=== PATIENT | male | born 1935 | race African-American/Black ===

== ENCOUNTER 2018-09-13 11:22 | Inpatient (IN) | payer MEDICARE, OTHER ==
[2018-09-13] VITALS (31 sets, daily range): BP systolic 77–139; BP diastolic 39–101
[~2018-09-13] VITALS: Ht 182.9 cm; Wt 85.0 kg
[2018-09-13 12:52] LABS: HEMATOCRIT. 31.1 % (42.0-52.0); HEMOGLOBIN. 9.5 g/dL (14.0-18.0); MEAN CORPUSCULAR HEMOGLOBIN 29.8 pg (28.0-32.0); MEAN CORPUSCULAR VOLUME 97.9 fL (80.0-94.0); MEAN PLATELET VOLUME 9.1 fl (7.4-10.4); PLATELET 186 x1000/uL (130-400); RED BLOOD CELL COUNT 3.17 mill/uL (4.7-6.1)
[2018-09-13 13:00] LABS: CHLORIDE 102 mEq/L (98-107); INR 1.1; PROTHROMBIN TIME 10.7 sec (9.1-11.1)
[2018-09-13] MEDS ORDERED: SODIUM CHLORIDE 0.9% 250 ML IV ONE (13:11)
[2018-09-13 13:13] LABS: NUCLEATED RED BLOOD CELLS 1 /100 WBC; PLATELET ESTIMATE NORMAL
[2018-09-13] MEDS ORDERED: SODIUM CHLORIDE 0.9% 1,000 ML IV ONE (13:58)
[2018-09-13] MEDS ORDERED: NOREPINEPHRINE 4 MG in DEXT 5% WATER 246 ML IV ONE (14:00)
[2018-09-13] MEDS ORDERED: VANCOMYCIN 1 G PREMIX 200 ML IV ONE (14:00)
[2018-09-13] MEDS ORDERED: PIPERACILLIN/TAZ 3.375G PREMIX 50 ML IV ONE (14:00)
[2018-09-13] MEDS ORDERED: NOREPINEPHRINE 4MG/250ML PMX 250 ML IV NR ×2 (14:30)
[2018-09-13 14:36] LABS: BG BILEVEL POS AIRWAY PRESSURE 15/5; BG CARBOXYHEMOGLOBIN 0.6 % (0.5-1.5); BG DEOXYHEMOGLOBIN 0.1 % (0.0-5.0); BG FRACTION INSPIRED OXYGEN 100; BG HCO3 ACT 22.1 mmol/L (22.0-26.0); BG METHEMOGLOBIN 0.4 % (0.0-1.5); BG OXYGEN SATURATION 99.9 % (92.0-98.5); BG OXYHEMOGLOBIN 98.9 % (94.0-97.0); BG PCO2 64.9 mmHg (35.0-45.0); BG PO2 458.9 mmHg (75.0-100.0); BG SAMPLE SITE LEFT RADIAL; BG TOTAL HEMOGLOBIN 9.5 g/dL (12.0-18.0); BG VENT MODE MASK - BIPAP
[2018-09-13] MEDS ORDERED: PROPOFOL 10MG/ML 100ML 100 ML IV ONE (15:15)
[2018-09-13] MEDS ORDERED: ETOMIDATE 2MG/ML 10ML VIAL IV ONE (15:15)
[2018-09-13] MEDS ORDERED: LORAZEPAM 2MG/ML CPJ IV ONE (15:15)
[2018-09-13] MEDS ORDERED: VECURONIUM BROMIDE 10 MG/VIAL IV ONE (15:15)
[2018-09-13] MEDS ORDERED: DIPHENHYDRAMINE 50MG/ML VIAL IV PRN (16:15)
[2018-09-13] MEDS ORDERED: NA PHOS,M-B/NA PHOS,DI-BA ENEMA 118ML PR PRN (16:15)
[2018-09-13] MEDS ORDERED: PROPOFOL 10MG/ML 100ML 100 ML IV PRN (16:15)
[2018-09-13] MEDS ORDERED: GUAIFENESIN 200MG/10ML SUGAR FREE UDC PO PRN (16:15)
[2018-09-13] MEDS ORDERED: IPRATROPIUM/ALBUTEROL 0.5-3(2.5)MG/3ML NEB INH PRN (16:15)
[2018-09-13] MEDS ORDERED: ACETAMINOPHEN 325MG TABLET PO PRN (16:15)
[2018-09-13] MEDS ORDERED: HYDROCODONE/ACETAMINOPHEN 5/325MG TABLET PO PRN (16:15)
[2018-09-13] MEDS ORDERED: ACETAMINOPHEN 650MG SUPP PR PRN (16:15)
[2018-09-13] MEDS ORDERED: LORAZEPAM 0.5MG TABLET PO PRN (16:15)
[2018-09-13] MEDS ORDERED: MAGNESIUM/ALUMINUM HYDROXIDE/SIMETHICONE 30ML UDC PO PRN (16:15)
[2018-09-13 16:19] LABS: BG BASE EXCESS -6.9 mmol/L (-2.0-2.0); BG CARBOXYHEMOGLOBIN 0.4 % (0.5-1.5); BG DEOXYHEMOGLOBIN 0.6 % (0.0-5.0); BG FRACTION INSPIRED OXYGEN 50; BG HCO3 ACT 17.5 mmol/L (22.0-26.0); BG METHEMOGLOBIN 0.1 % (0.0-1.5); BG OXYGEN SATURATION 99.4 % (92.0-98.5); BG OXYHEMOGLOBIN 98.9 % (94.0-97.0); BG PCO2 30.9 mmHg (35.0-45.0); BG PO2 220.9 mmHg (75.0-100.0); BG SAMPLE SITE LEFT RADIAL; BG TIDAL VOLUME(mL) 550 mL; BG TOTAL HEMOGLOBIN 9.3 g/dL (12.0-18.0); BG VENT MODE VENT - A/C; BG VENT RATE 20 set
[2018-09-13] MEDS ORDERED: NOREPINEPHRINE 8 MG in DEXT 5% WATER 242 ML IV PRN (17:00)
[2018-09-13 17:23] LABS: CLARITY URINE TURBID (CLEAR); KETONES URINE 2+ (NEGATIVE); LEUKOCYTE ESTERASE URINE 3+ (NEGATIVE); NITRITE URINE POSITIVE (NEGATIVE); OCCULT BLOOD URINE 3+ (NEGATIVE); PROTEIN URINE 4+ (NEGATIVE); SPECIFIC GRAVITY URINE 1.018 (1.005-1.030); UROBILINOGEN URINE >=8.0 E.U./dL (0.2-1.0)
[2018-09-13 17:45] LABS: *BARBITURATES SCREEN URINE NEGATIVE (NEGATIVE); *BENZODIAZEPINES SCREEN URINE NEGATIVE (NEGATIVE); *COCAINE SCREEN URINE NEGATIVE (NEGATIVE)
[2018-09-13 17:46] LABS: *AMPHETAMINES SCREEN URINE NEGATIVE (NEGATIVE); CANNABINOID URINE SCREEN NEGATIVE (NEGATIVE); METHADONE URINE SCREEN NEGATIVE (NEGATIVE); OPIATES URINE SCREEN NEGATIVE (NEGATIVE); PHENCYCLIDINE URINE SCREEN NEGATIVE (NEGATIVE)
[2018-09-13 17:51] LABS: COLOR URINE YELLOW (YELLOW)
[2018-09-13 19:13] LABS: BG BASE EXCESS -7.3 mmol/L (-2.0-2.0); BG CARBOXYHEMOGLOBIN 0.2 % (0.5-1.5); BG DEOXYHEMOGLOBIN 0.9 % (0.0-5.0); BG FRACTION INSPIRED OXYGEN 45; BG METHEMOGLOBIN 0.1 % (0.0-1.5); BG OXYGEN SATURATION 99.1 % (92.0-98.5); BG OXYHEMOGLOBIN 98.8 % (94.0-97.0); BG PCO2 41.5 mmHg (35.0-45.0); BG PH 7.278 (7.350-7.450); BG PO2 186.5 mmHg (75.0-100.0); BG SAMPLE SITE LEFT RADIAL; BG TIDAL VOLUME(mL) 450 mL; BG TOTAL HEMOGLOBIN 9.4 g/dL (12.0-18.0); BG VENT MODE VENT - A/C; BG VENT RATE 18 set
[2018-09-13] MEDS: IPRATROPIUM/ALBUTEROL 0.5-3(2.5)MG/3ML NEB INH SCH (20:26)
[2018-09-13] MEDS: HEPARIN 5000 UNITS/ML VIAL SUBCUT SCH (21:00)
[2018-09-13] MEDS ORDERED: PIPERACILLIN/TAZ 2.25G PREMIX 50 ML IV SCH ×2 (22:00)
[2018-09-13] MEDS: PIPERACILLIN/TAZ 2.25G PREMIX 50 ML IV SCH (22:10)
[2018-09-13] MEDS: NOREPINEPHRINE 8 MG in DEXT 5% WATER 242 ML IV PRN (22:36)
[2018-09-14] VITALS (99 sets, daily range): BP systolic 62–137; BP diastolic 30–74
[2018-09-14] MEDS: IPRATROPIUM/ALBUTEROL 0.5-3(2.5)MG/3ML NEB INH SCH ×7 (00:23→23:58)
[2018-09-14 05:38] LABS: HEMATOCRIT. 27.6 % (42.0-52.0); HEMOGLOBIN. 8.9 g/dL (14.0-18.0); MEAN CORPUSCULAR HEMOGLOBIN 30.5 pg (28.0-32.0); MEAN CORPUSCULAR VOLUME 94.8 fL (80.0-94.0); MEAN PLATELET VOLUME 9.4 fl (7.4-10.4); PLATELET 174 x1000/uL (130-400); RED BLOOD CELL COUNT 2.91 mill/uL (4.7-6.1); RED CELL DISTRIBUTION WIDTH 15.6 % (11.6-14.6)
[2018-09-14] MEDS: PIPERACILLIN/TAZ 2.25G PREMIX 50 ML IV SCH ×2 (05:41→14:38)
[2018-09-14 06:11] LABS: CHLORIDE 102 mEq/L (98-107)
[2018-09-14 06:23] LABS: CREATINE KINASE 184 IU/L (39-308); CREATINE KINASE MB FRACTION 6.7 ng/mL (0.5-3.6)
[2018-09-14 06:24] LABS: HDL CHOLESTEROL 47 mg/dL (40-59); T4 FREE 0.57 ng/dL (0.76-1.46)
[2018-09-14 06:34] LABS: LDL CHOLESTEROL 33 mg/dL (5-100)
[2018-09-14 07:44] LABS: PLATELET ESTIMATE NORMAL
[2018-09-14] MEDS: HEPARIN 5000 UNITS/ML VIAL SUBCUT SCH (08:09)
[2018-09-14] MEDS: ASPIRIN 81MG EC TABLET PO SCH (08:09)
[2018-09-14] MEDS: PANTOPRAZOLE SODIUM 40 MG/VIAL IV SCH (08:44)
[2018-09-14 08:55] LABS: BG BASE EXCESS -7.3 mmol/L (-2.0-2.0); BG CARBOXYHEMOGLOBIN 0.4 % (0.5-1.5); BG DEOXYHEMOGLOBIN 0.7 % (0.0-5.0); BG FRACTION INSPIRED OXYGEN 45; BG HCO3 ACT 18.9 mmol/L (22.0-26.0); BG METHEMOGLOBIN 0.3 % (0.0-1.5); BG OXYGEN SATURATION 99.3 % (92.0-98.5); BG OXYHEMOGLOBIN 98.6 % (94.0-97.0); BG PCO2 41.2 mmHg (35.0-45.0); BG PO2 196.3 mmHg (75.0-100.0); BG SAMPLE SITE RIGHT BRACHIAL; BG TIDAL VOLUME(mL) 450 mL; BG TOTAL HEMOGLOBIN 9.4 g/dL (12.0-18.0); BG VENT MODE VENT - A/C; BG VENT RATE 18 set
[2018-09-14] MEDS ORDERED: ASPIRIN 81MG TABLET PO SCH (09:00)
[2018-09-14] MEDS: NOREPINEPHRINE 8 MG in DEXT 5% WATER 242 ML IV PRN ×2 (11:28→20:25)
[2018-09-14] MEDS: LEVOTHYROXINE SODIUM 50MCG TABLET PO SCH (12:16)
[2018-09-14] MEDS ORDERED: LORAZEPAM 0.5MG TABLET PO PRN (12:41)
[2018-09-14] MEDS ORDERED: VANCOMYCIN 1250MG in DEXTROSE 5% WATER 250ML IV NR (14:45)
[2018-09-14] MEDS ORDERED: PROPOFOL 10MG/ML 100ML 100 ML IV PRN (17:45)
[2018-09-14] MEDS ORDERED: HEPARIN SODIUM 1,000 UNIT/1ML VIAL IV ONE (22:15)
[2018-09-15] VITALS (96 sets, daily range): BP systolic 79–132; BP diastolic 38–77
[2018-09-15] MEDS: PIPERACILLIN/TAZ 2.25G PREMIX 50 ML IV SCH ×4 (00:18→21:36)
[2018-09-15] MEDS: IPRATROPIUM/ALBUTEROL 0.5-3(2.5)MG/3ML NEB INH SCH ×5 (03:54→20:27)
[2018-09-15 05:48] LABS: HEMATOCRIT. 27.6 % (42.0-52.0); HEMOGLOBIN. 8.7 g/dL (14.0-18.0); MEAN CORPUSCULAR HEMOGLOBIN 29.8 pg (28.0-32.0); MEAN CORPUSCULAR VOLUME 94.4 fL (80.0-94.0); MEAN PLATELET VOLUME 9.5 fl (7.4-10.4); PLATELET 133 x1000/uL (130-400); RED BLOOD CELL COUNT 2.93 mill/uL (4.7-6.1); RED CELL DISTRIBUTION WIDTH 16.1 % (11.6-14.6)
[2018-09-15] MEDS: LEVOTHYROXINE SODIUM 50MCG TABLET PO SCH (05:49)
[2018-09-15] MEDS: NOREPINEPHRINE 8 MG in DEXT 5% WATER 242 ML IV PRN (05:50)
[2018-09-15 08:33] LABS: PLATELET ESTIMATE NORMAL
[2018-09-15] MEDS: ASPIRIN 81MG EC TABLET PO SCH (08:48)
[2018-09-15] MEDS: PANTOPRAZOLE SODIUM 40 MG/VIAL IV SCH (09:00)
[2018-09-15 09:20] LABS: BG BASE EXCESS -5.8 mmol/L (-2.0-2.0); BG CARBOXYHEMOGLOBIN 0.8 % (0.5-1.5); BG FRACTION INSPIRED OXYGEN 30; BG METHEMOGLOBIN 0.1 % (0.0-1.5); BG OXYHEMOGLOBIN 97.1 % (94.0-97.0); BG PCO2 34.8 mmHg (35.0-45.0); BG PH 7.356 (7.350-7.450); BG PO2 117.1 mmHg (75.0-100.0); BG SAMPLE SITE RIGHT BRACHIAL; BG TIDAL VOLUME(mL) 450 mL; BG TOTAL HEMOGLOBIN 8.9 g/dL (12.0-18.0); BG VENT MODE VENT - A/C; BG VENT RATE 18 set
[2018-09-15] MEDS ORDERED: LIDOCAINE HCL 1% 20ML VIAL (Pyxis) INJ ONE (09:36)
[2018-09-15 13:33] LABS: BG BASE EXCESS -4.5 mmol/L (-2.0-2.0); BG CARBOXYHEMOGLOBIN 0.4 % (0.5-1.5); BG DEOXYHEMOGLOBIN 3.8 % (0.0-5.0); BG FRACTION INSPIRED OXYGEN 30; BG HCO3 ACT 20.4 mmol/L (22.0-26.0); BG METHEMOGLOBIN 0.1 % (0.0-1.5); BG OXYGEN SATURATION 96.2 % (92.0-98.5); BG OXYHEMOGLOBIN 95.7 % (94.0-97.0); BG PCO2 36.8 mmHg (35.0-45.0); BG PH 7.362 (7.350-7.450); BG PO2 93.2 mmHg (75.0-100.0); BG PRESSURE SUPPORT 10; BG SAMPLE SITE RIGHT BRACHIAL; BG TOTAL HEMOGLOBIN 8.9 g/dL (12.0-18.0); BG VENT MODE VENT - CPAP
[2018-09-15 16:44] LABS: BG BASE EXCESS -2.9 mmol/L (-2.0-2.0); BG CARBOXYHEMOGLOBIN 0.4 % (0.5-1.5); BG DEOXYHEMOGLOBIN 1.6 % (0.0-5.0); BG FRACTION INSPIRED OXYGEN 35; BG HCO3 ACT 22.4 mmol/L (22.0-26.0); BG METHEMOGLOBIN 0.2 % (0.0-1.5); BG OXYGEN SATURATION 98.4 % (92.0-98.5); BG OXYHEMOGLOBIN 97.8 % (94.0-97.0); BG PCO2 41.5 mmHg (35.0-45.0); BG PH 7.351 (7.350-7.450); BG PO2 137.6 mmHg (75.0-100.0); BG SAMPLE SITE RIGHT BRACHIAL; BG TOTAL HEMOGLOBIN 9.4 g/dL (12.0-18.0); BG VENT MODE MASK - AEROSOL
[2018-09-16] VITALS (58 sets, daily range): BP systolic 91–135; BP diastolic 27–94
[2018-09-16] MEDS: IPRATROPIUM/ALBUTEROL 0.5-3(2.5)MG/3ML NEB INH SCH ×6 (01:14→20:25)
[2018-09-16] MEDS: NOREPINEPHRINE 8 MG in DEXT 5% WATER 242 ML IV PRN (01:34)
[2018-09-16 05:51] LABS: BASOPHILS % 0.4 % (0.0-2.0); EOSINOPHILS % 0.7 % (0.0-5.0); HEMATOCRIT. 27.9 % (42.0-52.0); HEMOGLOBIN. 8.8 g/dL (14.0-18.0); LYMPHOCYTES % 13.9 % (20.0-50.0); MEAN CORPUSCULAR HEMOGLOBIN 30.1 pg (28.0-32.0); MEAN CORPUSCULAR VOLUME 95.5 fL (80.0-94.0); MEAN PLATELET VOLUME 9.5 fl (7.4-10.4); MONOCYTES % 8.2 % (2.0-8.0); NEUTROPHILS % 76.8 % (40.0-76.0); PLATELET 149 x1000/uL (130-400); RED BLOOD CELL COUNT 2.93 mill/uL (4.7-6.1)
[2018-09-16] MEDS: LEVOTHYROXINE SODIUM 50MCG TABLET PO SCH (06:12)
[2018-09-16] MEDS: PIPERACILLIN/TAZ 2.25G PREMIX 50 ML IV SCH ×3 (06:13→21:16)
[2018-09-16] MEDS: ASPIRIN 81MG EC TABLET PO SCH (09:31)
[2018-09-16] MEDS: PANTOPRAZOLE SODIUM 40 MG/VIAL IV SCH (09:31)
[2018-09-16 09:41] LABS: BG BASE EXCESS -5.6 mmol/L (-2.0-2.0); BG CARBOXYHEMOGLOBIN 0.4 % (0.5-1.5); BG DEOXYHEMOGLOBIN 1.7 % (0.0-5.0); BG FRACTION INSPIRED OXYGEN 35; BG HCO3 ACT 19.3 mmol/L (22.0-26.0); BG OXYGEN SATURATION 98.3 % (92.0-98.5); BG OXYHEMOGLOBIN 97.9 % (94.0-97.0); BG PCO2 35.2 mmHg (35.0-45.0); BG PH 7.356 (7.350-7.450); BG PO2 132.2 mmHg (75.0-100.0); BG SAMPLE SITE RIGHT RADIAL; BG TOTAL HEMOGLOBIN 8.7 g/dL (12.0-18.0); BG VENT MODE MASK - AEROSOL
[2018-09-16] MEDS ORDERED: HEPARIN SODIUM 1,000 UNIT/1ML VIAL IV NR (12:30)
[2018-09-16] MEDS ORDERED: IOHEXOL-350 100 ML BOTTLE ONE (21:47)
[2018-09-17] VITALS (93 sets, daily range): BP systolic 65–133; BP diastolic 37–92
[2018-09-17] MEDS: IPRATROPIUM/ALBUTEROL 0.5-3(2.5)MG/3ML NEB INH SCH ×6 (01:00→20:39)
[2018-09-17] MEDS: PIPERACILLIN/TAZ 2.25G PREMIX 50 ML IV SCH ×3 (05:03→21:45)
[2018-09-17] MEDS: LEVOTHYROXINE SODIUM 50MCG TABLET PO SCH (05:43)
[2018-09-17] MEDS: NOREPINEPHRINE 8 MG in DEXT 5% WATER 242 ML IV PRN (07:59)
[2018-09-17] MEDS: ASPIRIN 81MG EC TABLET PO SCH (08:27)
[2018-09-17] MEDS: PANTOPRAZOLE SODIUM 40 MG/VIAL IV SCH (08:27)
[2018-09-17 13:31] LABS: HEMATOCRIT 26.4 % (42.0-52.0); HEMOGLOBIN 8.4 g/dL (14.0-18.0); MEAN CORPUSCULAR HEMOGLOBIN 29.8 pg (28.0-32.0); MEAN CORPUSCULAR VOLUME 93.8 fL (80.0-94.0); PLATELET 140 x1000/uL (130-400); RED BLOOD CELL COUNT 2.82 mill/uL (4.7-6.1); RED CELL DISTRIBUTION WIDTH 15.8 % (11.6-14.6)
[2018-09-17] MEDS ORDERED: LACTULOSE 20G/30ML UDC PO NR (14:45)
[2018-09-17] MEDS: ONDANSETRON HCL 4MG/2ML INJ IV PRN (15:07)
[2018-09-17] MEDS: AMIODARONE HCL 900 MG in DEXT 5% WATER 482 ML IV SCH (16:54)
[2018-09-17] MEDS ORDERED: DIGOXIN 500MCG/2ML AMP IV NR (18:15)
[2018-09-17] MEDS: PHENYLEPHRINE 40 MG in DEXT 5% WATER 246 ML IV PRN (21:46)
[2018-09-18] VITALS (94 sets, daily range): BP systolic 75–124; BP diastolic 36–69
[2018-09-18] MEDS: IPRATROPIUM/ALBUTEROL 0.5-3(2.5)MG/3ML NEB INH SCH ×7 (00:24→23:49)
[2018-09-18] MEDS: PHENYLEPHRINE 40 MG in DEXT 5% WATER 246 ML IV PRN ×2 (05:14→10:34)
[2018-09-18] MEDS: PIPERACILLIN/TAZ 2.25G PREMIX 50 ML IV SCH (05:48)
[2018-09-18] MEDS: LEVOTHYROXINE SODIUM 50MCG TABLET PO SCH (05:48)
[2018-09-18 06:34] LABS: HEMOGLOBIN. 8.5 g/dL (14.0-18.0); MEAN CORPUSCULAR HEMOGLOBIN 29.8 pg (28.0-32.0); MEAN CORPUSCULAR VOLUME 95.2 fL (80.0-94.0); MEAN PLATELET VOLUME 8.7 fl (7.4-10.4); PLATELET 135 x1000/uL (130-400); RED BLOOD CELL COUNT 2.83 mill/uL (4.7-6.1); RED CELL DISTRIBUTION WIDTH 16.2 % (11.6-14.6)
[2018-09-18 07:25] LABS: PLATELET ESTIMATE NORMAL
[2018-09-18] MEDS: ASPIRIN 81MG EC TABLET PO SCH (08:57)
[2018-09-18] MEDS: PANTOPRAZOLE SODIUM 40 MG/VIAL IV SCH (08:57)
[2018-09-18] MEDS: PHENYLEPHRINE 80 MG in DEXT 5% WATER 500 ML IV PRN (14:55)
[2018-09-18] MEDS: AMIODARONE HCL 900 MG in DEXT 5% WATER 482 ML IV SCH (17:23)
[2018-09-19] VITALS (86 sets, daily range): BP systolic 81–152; BP diastolic 41–116
[2018-09-19] MEDS: IPRATROPIUM/ALBUTEROL 0.5-3(2.5)MG/3ML NEB INH SCH ×5 (03:50→20:32)
[2018-09-19] MEDS: PHENYLEPHRINE 80 MG in DEXT 5% WATER 500 ML IV PRN (03:59)
[2018-09-19 05:43] LABS: HEMATOCRIT. 25.9 % (42.0-52.0); HEMOGLOBIN. 8.2 g/dL (14.0-18.0); MEAN CORPUSCULAR HEMOGLOBIN 29.8 pg (28.0-32.0); MEAN CORPUSCULAR VOLUME 94.6 fL (80.0-94.0); MEAN PLATELET VOLUME 8.9 fl (7.4-10.4); PLATELET 123 x1000/uL (130-400); RED BLOOD CELL COUNT 2.74 mill/uL (4.7-6.1); RED CELL DISTRIBUTION WIDTH 16.1 % (11.6-14.6)
[2018-09-19] MEDS: LEVOTHYROXINE SODIUM 50MCG TABLET PO SCH (06:33)
[2018-09-19 07:29] LABS: NUCLEATED RED BLOOD CELLS 2 /100 WBC; PLATELET ESTIMATE SLIGHTLY DECREASED
[2018-09-19 08:38] LABS: BG CARBOXYHEMOGLOBIN 0.5 % (0.5-1.5); BG DEOXYHEMOGLOBIN 1.7 % (0.0-5.0); BG FRACTION INSPIRED OXYGEN 28; BG HCO3 ACT 22.3 mmol/L (22.0-26.0); BG METHEMOGLOBIN 0.3 % (0.0-1.5); BG OXYGEN SATURATION 98.3 % (92.0-98.5); BG OXYHEMOGLOBIN 97.5 % (94.0-97.0); BG PCO2 40.7 mmHg (35.0-45.0); BG PH 7.356 (7.350-7.450); BG PO2 123.5 mmHg (75.0-100.0); BG SAMPLE SITE RIGHT BRACHIAL; BG TOTAL HEMOGLOBIN 8.7 g/dL (12.0-18.0); BG VENT MODE NASAL CANNULA
[2018-09-19] MEDS: PANTOPRAZOLE SODIUM 40 MG/VIAL IV SCH (08:55)
[2018-09-19] MEDS: ASPIRIN 81MG EC TABLET PO SCH (11:35)
[2018-09-19] MEDS: MIDODRINE HCL 5MG TABLET PO SCH ×2 (13:00→17:46)
[2018-09-19] MEDS ORDERED: PHENYLEPHRINE 80 MG in DEXT 5% WATER 492 ML IV PRN ×2 (16:46→19:01)
[2018-09-19] MEDS ORDERED: AMIODARONE HCL 900 MG in DEXT 5% WATER 482 ML IV SCH (18:00)
[2018-09-19] MEDS: GUAIFENESIN 600MG ER TABLET PO SCH (21:20)
[2018-09-20] VITALS (85 sets, daily range): BP systolic 83–132; BP diastolic 36–72
[2018-09-20] MEDS: ONDANSETRON HCL 4MG/2ML INJ IV PRN ×3 (02:16→09:55)
[2018-09-20] MEDS: IPRATROPIUM/ALBUTEROL 0.5-3(2.5)MG/3ML NEB INH SCH ×5 (04:18→20:45)
[2018-09-20] MEDS: LEVOTHYROXINE SODIUM 50MCG TABLET PO SCH (06:13)
[2018-09-20] MEDS ORDERED: PHENYLEPHRINE 80 MG in SODIUM CHLORIDE 0.9% 492 ML IV PRN (06:45)
[2018-09-20] MEDS: PHENYLEPHRINE 80 MG in SODIUM CHLORIDE 0.9% 492 ML IV PRN ×3 (07:16→16:32)
[2018-09-20 07:29] LABS: HEMATOCRIT 25.1 % (42.0-52.0); HEMOGLOBIN 8.1 g/dL (14.0-18.0); MEAN CORPUSCULAR HEMOGLOBIN 30.2 pg (28.0-32.0); MEAN CORPUSCULAR VOLUME 93.9 fL (80.0-94.0); PLATELET 129 x1000/uL (130-400); RED BLOOD CELL COUNT 2.68 mill/uL (4.7-6.1); RED CELL DISTRIBUTION WIDTH 15.9 % (11.6-14.6)
[2018-09-20 07:39] LABS: PHOSPHORUS 6.3 mg/dL (2.5-4.9)
[2018-09-20] MEDS: ASPIRIN 81MG EC TABLET PO SCH (09:24)
[2018-09-20] MEDS: PANTOPRAZOLE SODIUM 40 MG/VIAL IV SCH (09:24)
[2018-09-20] MEDS: MIDODRINE HCL 5MG TABLET PO SCH ×3 (09:32→18:03)
[2018-09-20] MEDS: GUAIFENESIN 600MG ER TABLET PO SCH ×2 (09:32→21:00)
[2018-09-20] MEDS ORDERED: HEPARIN SODIUM 1,000 UNIT/1ML VIAL IV NR (11:30)
[2018-09-20] MEDS: ACETYLCYSTEINE 100MG/ML 10% VIAL 4ML INH SCH ×3 (13:16→16:50)
[2018-09-21] VITALS (79 sets, daily range): BP systolic 76–128; BP diastolic 48–82
[2018-09-21] MEDS: IPRATROPIUM/ALBUTEROL 0.5-3(2.5)MG/3ML NEB INH SCH ×6 (00:08→19:57)
[2018-09-21] MEDS: ACETYLCYSTEINE 100MG/ML 10% VIAL 4ML INH SCH ×3 (00:08→15:33)
[2018-09-21] MEDS: PHENYLEPHRINE 80 MG in SODIUM CHLORIDE 0.9% 492 ML IV PRN ×3 (01:31→10:39)
[2018-09-21 05:42] LABS: HEMATOCRIT. 25.6 % (42.0-52.0); HEMOGLOBIN. 8.1 g/dL (14.0-18.0); MEAN CORPUSCULAR HEMOGLOBIN 30.1 pg (28.0-32.0); MEAN CORPUSCULAR VOLUME 95.5 fL (80.0-94.0); MEAN PLATELET VOLUME 9.2 fl (7.4-10.4); PLATELET 133 x1000/uL (130-400); RED BLOOD CELL COUNT 2.68 mill/uL (4.7-6.1); RED CELL DISTRIBUTION WIDTH 16.3 % (11.6-14.6)
[2018-09-21] MEDS: MIDODRINE HCL 5MG TABLET PO SCH ×3 (09:22→17:30)
[2018-09-21] MEDS: ASPIRIN 81MG EC TABLET PO SCH (09:22)
[2018-09-21] MEDS: GUAIFENESIN 600MG ER TABLET PO SCH ×2 (09:23→21:16)
[2018-09-21] MEDS: PANTOPRAZOLE SODIUM 40 MG/VIAL IV SCH (09:23)
[2018-09-21 09:43] LABS: PLATELET ESTIMATE NORMAL
[2018-09-21] MEDS: AMIODARONE HCL 200 MG TABLET PO SCH (17:31)
[2018-09-22] VITALS (51 sets, daily range): BP systolic 86–134; BP diastolic 41–80
[2018-09-22] MEDS: ACETYLCYSTEINE 100MG/ML 10% VIAL 4ML INH SCH ×3 (00:09→15:55)
[2018-09-22] MEDS: IPRATROPIUM/ALBUTEROL 0.5-3(2.5)MG/3ML NEB INH SCH ×6 (00:09→20:20)
[2018-09-22] MEDS: LEVOTHYROXINE SODIUM 50MCG TABLET PO SCH ×2 (05:52→05:54)
[2018-09-22] MEDS: MIDODRINE HCL 5MG TABLET PO SCH ×3 (08:47→16:35)
[2018-09-22] MEDS: AMIODARONE HCL 200 MG TABLET PO SCH ×2 (08:47→20:54)
[2018-09-22] MEDS: GUAIFENESIN 600MG ER TABLET PO SCH ×2 (08:47→20:54)
[2018-09-22] MEDS: PANTOPRAZOLE SODIUM 40 MG/VIAL IV SCH (08:47)
[2018-09-22] MEDS: ASPIRIN 81MG EC TABLET PO SCH (08:47)
[2018-09-23] VITALS (43 sets, daily range): BP systolic 73–124; BP diastolic 36–77
[2018-09-23] MEDS: IPRATROPIUM/ALBUTEROL 0.5-3(2.5)MG/3ML NEB INH SCH ×5 (00:26→20:26)
[2018-09-23] MEDS: ACETYLCYSTEINE 100MG/ML 10% VIAL 4ML INH SCH ×2 (00:27→07:29)
[2018-09-23] MEDS: LEVOTHYROXINE SODIUM 50MCG TABLET PO SCH (06:04)
[2018-09-23] MEDS: PANTOPRAZOLE SODIUM 40 MG/VIAL IV SCH (08:14)
[2018-09-23] MEDS: MIDODRINE HCL 5MG TABLET PO SCH ×3 (08:14→16:56)
[2018-09-23] MEDS: ASPIRIN 81MG EC TABLET PO SCH (08:14)
[2018-09-23] MEDS: GUAIFENESIN 600MG ER TABLET PO SCH ×2 (08:15→20:42)
[2018-09-23] MEDS: AMIODARONE HCL 200 MG TABLET PO SCH ×2 (08:15→20:42)
[2018-09-23 08:20] LABS: BG BASE EXCESS -8.3 mmol/L (-2.0-2.0); BG CARBOXYHEMOGLOBIN 0.9 % (0.5-1.5); BG DEOXYHEMOGLOBIN 2.8 % (0.0-5.0); BG FRACTION INSPIRED OXYGEN 34; BG HCO3 ACT 17.5 mmol/L (22.0-26.0); BG METHEMOGLOBIN 0.3 % (0.0-1.5); BG OXYGEN SATURATION 97.2 % (92.0-98.5); BG PH 7.293 (7.350-7.450); BG PO2 99.7 mmHg (75.0-100.0); BG SAMPLE SITE RIGHT BRACHIAL; BG TOTAL HEMOGLOBIN 9.2 g/dL (12.0-18.0); BG VENT MODE NASAL CANNULA
[2018-09-23] MEDS ORDERED: HEPARIN SODIUM 1,000 UNIT/1ML VIAL IV NR (08:30)
[2018-09-23] MEDS: PHENYLEPHRINE 80 MG in SODIUM CHLORIDE 0.9% 492 ML IV PRN (09:40)
[2018-09-23 12:27] LABS: HEMATOCRIT 28.2 % (42.0-52.0); HEMOGLOBIN 8.9 g/dL (14.0-18.0); MEAN CORPUSCULAR VOLUME 94.8 fL (80.0-94.0); PLATELET 131 x1000/uL (130-400); RED BLOOD CELL COUNT 2.97 mill/uL (4.7-6.1); RED CELL DISTRIBUTION WIDTH 16.7 % (11.6-14.6)
[2018-09-23 13:26] LABS: BG BASE EXCESS -5.6 mmol/L (-2.0-2.0); BG CARBOXYHEMOGLOBIN 0.8 % (0.5-1.5); BG DEOXYHEMOGLOBIN 3.4 % (0.0-5.0); BG FRACTION INSPIRED OXYGEN 34; BG HCO3 ACT 20.3 mmol/L (22.0-26.0); BG METHEMOGLOBIN 0.2 % (0.0-1.5); BG OXYGEN SATURATION 96.6 % (92.0-98.5); BG OXYHEMOGLOBIN 95.6 % (94.0-97.0); BG PCO2 41.7 mmHg (35.0-45.0); BG PH 7.305 (7.350-7.450); BG PO2 98.3 mmHg (75.0-100.0); BG SAMPLE SITE RIGHT BRACHIAL; BG VENT MODE NASAL CANNULA
[2018-09-24] VITALS (34 sets, daily range): BP systolic 91–120; BP diastolic 44–77
[2018-09-24] MEDS: IPRATROPIUM/ALBUTEROL 0.5-3(2.5)MG/3ML NEB INH SCH ×6 (00:24→20:35)
[2018-09-24] MEDS: ACETYLCYSTEINE 100MG/ML 10% VIAL 4ML INH SCH ×3 (00:24→16:22)
[2018-09-24 05:27] LABS: HEMATOCRIT. 24.8 % (42.0-52.0); MEAN CORPUSCULAR HEMOGLOBIN 30.2 pg (28.0-32.0); MEAN CORPUSCULAR VOLUME 94.1 fL (80.0-94.0); MEAN PLATELET VOLUME 9.1 fl (7.4-10.4); PLATELET 120 x1000/uL (130-400); RED BLOOD CELL COUNT 2.64 mill/uL (4.7-6.1); RED CELL DISTRIBUTION WIDTH 16.4 % (11.6-14.6)
[2018-09-24] MEDS: LEVOTHYROXINE SODIUM 50MCG TABLET PO SCH (06:13)
[2018-09-24 08:12] LABS: BG BASE EXCESS -2.8 mmol/L (-2.0-2.0); BG CARBOXYHEMOGLOBIN 0.8 % (0.5-1.5); BG DEOXYHEMOGLOBIN 10.9 % (0.0-5.0); BG FRACTION INSPIRED OXYGEN 21; BG HCO3 ACT 22.4 mmol/L (22.0-26.0); BG METHEMOGLOBIN 0.1 % (0.0-1.5); BG OXYHEMOGLOBIN 88.2 % (94.0-97.0); BG PCO2 40.4 mmHg (35.0-45.0); BG PH 7.361 (7.350-7.450); BG PO2 60.7 mmHg (75.0-100.0); BG SAMPLE SITE RIGHT BRACHIAL; BG TOTAL HEMOGLOBIN 8.5 g/dL (12.0-18.0); BG VENT MODE ROOM AIR
[2018-09-24] MEDS: MIDODRINE HCL 5MG TABLET PO SCH ×3 (09:11→18:14)
[2018-09-24] MEDS: PANTOPRAZOLE SODIUM 40 MG/VIAL IV SCH (09:11)
[2018-09-24] MEDS: AMIODARONE HCL 200 MG TABLET PO SCH ×2 (09:12→21:27)
[2018-09-24] MEDS: GUAIFENESIN 600MG ER TABLET PO SCH ×2 (09:12→21:27)
[2018-09-24] MEDS: DOCUSATE SODIUM 100MG CAPSULE PO PRN (09:12)
[2018-09-24] MEDS: ASPIRIN 81MG EC TABLET PO SCH (09:12)
[2018-09-24 16:57] LABS: NUCLEATED RED BLOOD CELLS 3 /100 WBC; PLATELET ESTIMATE DECREASED
[2018-09-25] VITALS (23 sets, daily range): BP systolic 87–116; BP diastolic 42–74
[2018-09-25] MEDS: IPRATROPIUM/ALBUTEROL 0.5-3(2.5)MG/3ML NEB INH SCH ×6 (00:30→21:41)
[2018-09-25] MEDS: LEVOTHYROXINE SODIUM 50MCG TABLET PO SCH (05:57)
[2018-09-25 06:08] LABS: HEMOGLOBIN. 7.7 g/dL (14.0-18.0); MEAN CORPUSCULAR VOLUME 93.9 fL (80.0-94.0); MEAN PLATELET VOLUME 8.7 fl (7.4-10.4); PLATELET 108 x1000/uL (130-400); RED BLOOD CELL COUNT 2.55 mill/uL (4.7-6.1)
[2018-09-25 06:24] LABS: T4 FREE 0.83 ng/dL (0.76-1.46)
[2018-09-25] MEDS: ACETYLCYSTEINE 100MG/ML 10% VIAL 4ML INH SCH (08:16)
[2018-09-25] MEDS: GUAIFENESIN 600MG ER TABLET PO SCH ×2 (09:18→20:45)
[2018-09-25] MEDS: AMIODARONE HCL 200 MG TABLET PO SCH ×2 (09:19→20:45)
[2018-09-25] MEDS: DOCUSATE SODIUM 100MG CAPSULE PO PRN (09:19)
[2018-09-25] MEDS: MIDODRINE HCL 5MG TABLET PO SCH ×2 (09:19→20:44)
[2018-09-25] MEDS: ASPIRIN 81MG EC TABLET PO SCH (09:19)
[2018-09-25] MEDS: PANTOPRAZOLE SODIUM 40 MG/VIAL IV SCH (09:20)
[2018-09-25] MEDS ORDERED: HEPARIN SODIUM 1,000 UNIT/1ML VIAL IV ONE (12:00)
[2018-09-25 14:31] LABS: NUCLEATED RED BLOOD CELLS 1 /100 WBC
[2018-09-25 14:32] LABS: PLATELET ESTIMATE SLIGHTLY DECREASED
[2018-09-25] MEDS ORDERED: HYDROCODONE/ACETAMINOPHEN 5/325MG TABLET PO PRN (20:00)
[2018-09-26] VITALS (12 sets, daily range): BP systolic 99–115; BP diastolic 42–64
[2018-09-26] MEDS: IPRATROPIUM/ALBUTEROL 0.5-3(2.5)MG/3ML NEB INH SCH ×6 (01:30→20:14)
[2018-09-26 07:05] LABS: HEMATOCRIT 28.2 % (42.0-52.0); MEAN CORPUSCULAR HEMOGLOBIN 29.5 pg (28.0-32.0); MEAN CORPUSCULAR VOLUME 92.1 fL (80.0-94.0); PLATELET 88 x1000/uL (130-400); RED BLOOD CELL COUNT 3.06 mill/uL (4.7-6.1); RED CELL DISTRIBUTION WIDTH 16.4 % (11.6-14.6)
[2018-09-26] MEDS: PANTOPRAZOLE SODIUM 40 MG/VIAL IV SCH (09:53)
[2018-09-26] MEDS: GUAIFENESIN 600MG ER TABLET PO SCH ×2 (09:53→21:26)
[2018-09-26] MEDS: ASPIRIN 81MG EC TABLET PO SCH (09:53)
[2018-09-26] MEDS: MIDODRINE HCL 5MG TABLET PO SCH ×3 (09:53→17:26)
[2018-09-26] MEDS: LEVOTHYROXINE SODIUM 50MCG TABLET PO SCH (09:54)
[2018-09-26] MEDS: DOCUSATE SODIUM 100MG CAPSULE PO PRN (09:54)
[2018-09-26] MEDS: AMIODARONE HCL 200 MG TABLET PO SCH ×2 (10:02→21:26)
[2018-09-26 10:36] LABS: TOTAL IRON BINDING CAPACITY 335 ug/dL (250-450)
[2018-09-26] MEDS ORDERED: EPOETIN ALFA 4000UNITS/ML VIAL SUBCUT SCH (21:00)
[2018-09-27] VITALS (12 sets, daily range): BP systolic 94–112; BP diastolic 49–68
[2018-09-27] MEDS: IPRATROPIUM/ALBUTEROL 0.5-3(2.5)MG/3ML NEB INH SCH ×6 (00:04→20:42)
[2018-09-27] MEDS: MIDODRINE HCL 5MG TABLET PO SCH ×3 (05:43→16:41)
[2018-09-27 07:43] LABS: HEMATOCRIT. 29.8 % (42.0-52.0); HEMOGLOBIN. 9.7 g/dL (14.0-18.0); MEAN CORPUSCULAR HEMOGLOBIN 29.8 pg (28.0-32.0); MEAN CORPUSCULAR VOLUME 91.7 fL (80.0-94.0); PLATELET 86 x1000/uL (130-400); RED BLOOD CELL COUNT 3.26 mill/uL (4.7-6.1); RED CELL DISTRIBUTION WIDTH 16.5 % (11.6-14.6)
[2018-09-27] MEDS: LEVOTHYROXINE SODIUM 50MCG TABLET PO SCH (08:35)
[2018-09-27] MEDS: ASPIRIN 81MG EC TABLET PO SCH (10:11)
[2018-09-27] MEDS: PANTOPRAZOLE SODIUM 40 MG/VIAL IV SCH (10:11)
[2018-09-27] MEDS: AMIODARONE HCL 200 MG TABLET PO SCH ×2 (10:11→20:51)
[2018-09-27] MEDS: GUAIFENESIN 600MG ER TABLET PO SCH ×2 (10:18→20:50)
[2018-09-27] MEDS ORDERED: ONDANSETRON HCL 4MG/2ML INJ IV PRN (14:45)
[2018-09-27] MEDS ORDERED: LIDOCAINE HCL 20 MG/ML 100ML BOTTLE MM PRN (16:00)
[2018-09-27] MEDS: ONDANSETRON HCL 4MG/2ML INJ IV PRN (16:41)
[2018-09-27] MEDS: CARVEDILOL 3.125 MG TABLET PO SCH (20:51)
[2018-09-27 21:33] LABS: NUCLEATED RED BLOOD CELLS 2 /100 WBC; PLATELET ESTIMATE DECREASED
[2018-09-28] VITALS (9 sets, daily range): BP systolic 79–110; BP diastolic 41–55
[2018-09-28] MEDS: IPRATROPIUM/ALBUTEROL 0.5-3(2.5)MG/3ML NEB INH SCH ×4 (00:35→12:15)
[2018-09-28 07:33] LABS: HEPATITIS B SURFACE AB < 3.1 mIU/mL
[2018-09-28 07:44] LABS: HEPATITIS B SURFACE ANTIGEN NEGATIVE
[2018-09-28] MEDS: PANTOPRAZOLE SODIUM 40 MG/VIAL IV SCH (09:16)
[2018-09-28] MEDS: MIDODRINE HCL 5MG TABLET PO SCH (09:16)
[2018-09-28] MEDS: AMIODARONE HCL 200 MG TABLET PO SCH (09:16)
[2018-09-28] MEDS: GUAIFENESIN 600MG ER TABLET PO SCH (09:17)
[2018-09-28] MEDS: CARVEDILOL 3.125 MG TABLET PO SCH (09:17)
[2018-09-28] MEDS: LEVOTHYROXINE SODIUM 50MCG TABLET PO SCH (09:17)
[2018-09-28 11:47] LABS: HEMATOCRIT. 28.4 % (42.0-52.0); HEMOGLOBIN. 9.1 g/dL (14.0-18.0); MEAN CORPUSCULAR HEMOGLOBIN 29.6 pg (28.0-32.0); MEAN CORPUSCULAR VOLUME 92.3 fL (80.0-94.0); MEAN PLATELET VOLUME 9.3 fl (7.4-10.4); PLATELET 73 x1000/uL (130-400); RED BLOOD CELL COUNT 3.08 mill/uL (4.7-6.1); RED CELL DISTRIBUTION WIDTH 16.7 % (11.6-14.6)
[2018-09-28] MEDS ORDERED: SODIUM BICARBONATE 8.4% 1 MEQ/ML 50ML SYR IV ONE ×2 (13:04→13:53)
[2018-09-28] MEDS ORDERED: EPINEPHRINE 0.1MG/ML (1:10,000) 10ML SYR ONE ×2 (13:04→13:53)
[2018-09-28] MEDS ORDERED: CALCIUM CHLORIDE 1GM/10ML SYR IV ONE ×2 (13:04→13:53)
[2018-09-28] MEDS ORDERED: ATROPINE SULFATE 1MG/10ML SYR ONE ×2 (13:04→13:53)
[2018-09-28 13:38] LABS: BG BASE EXCESS -5.4 mmol/L (-2.0-2.0); BG CARBOXYHEMOGLOBIN 0.6 % (0.5-1.5); BG DEOXYHEMOGLOBIN 3.4 % (0.0-5.0); BG FRACTION INSPIRED OXYGEN 28; BG HCO3 ACT 20.1 mmol/L (22.0-26.0); BG METHEMOGLOBIN 0.3 % (0.0-1.5); BG OXYGEN SATURATION 96.6 % (92.0-98.5); BG OXYHEMOGLOBIN 95.7 % (94.0-97.0); BG PCO2 39.2 mmHg (35.0-45.0); BG PH 7.328 (7.350-7.450); BG PO2 101.1 mmHg (75.0-100.0); BG SAMPLE SITE RIGHT RADIAL; BG TOTAL HEMOGLOBIN 9.8 g/dL (12.0-18.0); BG VENT MODE NASAL CANNULA
[2018-09-28] MEDS ORDERED: DOPAMINE 400MG/250ML PREMIX 250 ML IV ONE (14:43)
[2018-09-28] MEDS ORDERED: NOREPINEPHRINE 16 MG in DEXT 5% WATER 234 ML IV PRN (15:15)
[2018-09-28] MEDS ORDERED: EPINEPHRINE 4 MG in SODIUM CHLORIDE 0.9% 246 ML IV PRN (15:30)
[2018-09-28] MEDS ORDERED: NOREPINEPHRINE 16 MG in SODIUM CHLORIDE 0.9% 234 ML IV PRN (15:45)
[2018-09-28 15:49] LABS: BG BASE EXCESS -3.8 mmol/L (-2.0-2.0); BG DEOXYHEMOGLOBIN 74.2 % (0.0-5.0); BG FRACTION INSPIRED OXYGEN 100; BG HCO3 ACT 25.4 mmol/L (22.0-26.0); BG METHEMOGLOBIN 1.4 % (0.0-1.5); BG OXYGEN SATURATION 24.7 % (92.0-98.5); BG OXYHEMOGLOBIN 24.4 % (94.0-97.0); BG PCO2 74.6 mmHg (35.0-45.0); BG PO2 < 30.3 mmHg (75.0-100.0); BG SAMPLE SITE RIGHT RADIAL; BG TIDAL VOLUME(mL) 500 mL; BG TOTAL HEMOGLOBIN 8.5 g/dL (12.0-18.0); BG VENT MODE VENT - A/C; BG VENT RATE 28 set
[2018-09-28 16:49] LABS: NUCLEATED RED BLOOD CELLS 4 /100 WBC; PLATELET ESTIMATE DECREASED
[2018-09-28] MEDS ORDERED: ACETYLCYSTEINE 100MG/ML 10% VIAL 4ML INH SCH (22:00)
== END 2018-09-28 16:32 | disposition expired | DRG 853 ==
LOC: ER 11:22 → EDBEDREQ 13:21 → EDBEDREQSVC 13:21 → MICUSO 13:48 → EDBEDREQ 13:51 → EDBEDREQSVC 13:51 → SUPCPDRO 14:04 → ENRESERV 15:25 → 5EST 09-25 12:34 → CVICU 09-28 14:50
PROVIDERS: ADMIT Internal Medicine; ATTEND Internal Medicine
PROC: 5A1945Z Respiratory Ventilation, 24-96 Consecutive Hours (ICD-10-PCS; principal; 2018-09-13)
PROC: 0BH18EZ Insertion of Endotracheal Airway into Trachea, Via Natural or Artificial Opening Endoscopic (ICD-10-PCS; 2018-09-13)
PROC: 02HV33Z Insertion of Infusion Device into Superior Vena Cava, Percutaneous Approach (ICD-10-PCS; 2018-09-13)
PROC: B548ZZA Ultrasonography of Superior Vena Cava, Guidance (ICD-10-PCS; 2018-09-13)
PROC: 5A09357 Assistance with Respiratory Ventilation, Less than 24 Consecutive Hours, Continuous Positive Airway Pressure (ICD-10-PCS; 2018-09-13)
PROC: 06H03DZ Insertion of Intraluminal Device into Inferior Vena Cava, Percutaneous Approach (ICD-10-PCS; 2018-09-15)
PROC: 5A1D70Z Performance of Urinary Filtration, Intermittent, Less than 6 Hours Per Day (ICD-10-PCS; 2018-09-18)
PROC: 5A1D70Z Performance of Urinary Filtration, Intermittent, Less than 6 Hours Per Day (ICD-10-PCS; 2018-09-20)
PROC: 5A1D70Z Performance of Urinary Filtration, Intermittent, Less than 6 Hours Per Day (ICD-10-PCS; 2018-09-23)
PROC: 5A1D70Z Performance of Urinary Filtration, Intermittent, Less than 6 Hours Per Day (ICD-10-PCS; 2018-09-24)
PROC: 30233N1 Transfusion of Nonautologous Red Blood Cells into Peripheral Vein, Percutaneous Approach (ICD-10-PCS; 2018-09-25)
PROC: 5A1D70Z Performance of Urinary Filtration, Intermittent, Less than 6 Hours Per Day (ICD-10-PCS; 2018-09-26)
PROC: 5A12012 Performance of Cardiac Output, Single, Manual (ICD-10-PCS; 2018-09-28)
PROC: 0BH17EZ Insertion of Endotracheal Airway into Trachea, Via Natural or Artificial Opening (ICD-10-PCS; 2018-09-28)
PROC: 5A1935Z Respiratory Ventilation, Less than 24 Consecutive Hours (ICD-10-PCS; 2018-09-28)
PROC: 5A1D70Z Performance of Urinary Filtration, Intermittent, Less than 6 Hours Per Day (ICD-10-PCS; 2018-09-28)
DX: A41.9 Sepsis, unspecified organism (principal); N18.6 End stage renal disease; R65.21 Severe sepsis with septic shock; J96.02 Acute respiratory failure with hypercapnia; E43 Unspecified severe protein-calorie malnutrition; G93.41 Metabolic encephalopathy; I50.43 Acute on chronic combined systolic (congestive) and diastolic (congestive) heart failure; J96.01 Acute respiratory failure with hypoxia; J69.0 Pneumonitis due to inhalation of food and vomit; I21.4 Non-ST elevation (NSTEMI) myocardial infarction; I13.2 Hypertensive heart and chronic kidney disease with heart failure and with stage 5 chronic kidney disease, or end stage renal disease; G93.40 Encephalopathy, unspecified; I42.9 Cardiomyopathy, unspecified; D68.59 Other primary thrombophilia; E87.1 Hypo-osmolality and hyponatremia; E87.2 Acidosis; I31.3 Pericardial effusion (noninflammatory); J98.11 Atelectasis; N17.9 Acute kidney failure, unspecified; R64 Cachexia; I47.2 Ventricular tachycardia; I82.413 Acute embolism and thrombosis of femoral vein, bilateral; T82.868A Thrombosis due to vascular prosthetic devices, implants and grafts, initial encounter; I25.10 Atherosclerotic heart disease of native coronary artery without angina pectoris; C61 Malignant neoplasm of prostate; D53.9 Nutritional anemia, unspecified; D69.6 Thrombocytopenia, unspecified; E03.9 Hypothyroidism, unspecified; I46.9 Cardiac arrest, cause unspecified; I48.2 Chronic atrial fibrillation; I71.4 Abdominal aortic aneurysm, without rupture; M10.9 Gout, unspecified; R31.9 Hematuria, unspecified; R13.10 Dysphagia, unspecified; R62.7 Adult failure to thrive; R54 Age-related physical debility; R73.9 Hyperglycemia, unspecified; Z68.25 Body mass index [BMI] 25.0-25.9, adult; Z86.79 Personal history of other diseases of the circulatory system; I25.2 Old myocardial infarction; Z91.19 Patient's noncompliance with other medical treatment and regimen; Z99.2 Dependence on renal dialysis; Z79.899 Other long term (current) drug therapy; Y92.89 Other specified places as the place of occurrence of the external cause
CPT/HCPCS: 31500; 36415; 36569; 36600; 37191; 70360; 71045; 74018; 74174; 74176; 76937; 78580; 80048; 80061; 80162; 80202; 80305; 82375; 82550; 82553; 82728; 82805; 82962; 83540; 83550; 83605; 83735; 83880; 84100; 84439; 84443; 84478; 84484; 85027; 86705; 86706; 86803; 86850; 86900; 86920; 87070; 87077; 87106; 87186; 87340; 87804; 92950; 93005; 93306; 93970; 94002; 94003; 94640; 94660; 96365; 97110; 97162; 97530; 99291; A6261; C1725; C1769; C1880; C9113; J0282; J0461; J0885; J1160; J1265; J1644; J2060; J2370; J2405; J2543; J2704; J3370; J3490; J7030; J7040; J7050; J7060; J7608; J7620; P9016; Q9967